=== PATIENT | female | born 1965 | race Caucasian/White ===

== ENCOUNTER 2018-04-19 20:54 | Emergency (ER) | payer OTHER ==
[~2018-04-19] VITALS: Ht 167.6 cm; Wt 117.9 kg
[~2018-04-19 20:54] MED LIST: ASPIRIN81 M2 PO; Z.0.ATENOLOL25 MG PO; Z.0.GABAPENTIN100 MG PO; Z.0.LOSARTAN POTASS2 PO; Z.0.MULTIVITAMINS1 E; [UNRECOGNIZED DRUG - OTHER]
[2018-04-19] MEDS ORDERED: METHYLPREDNISOLONE SOD SUCC 125 MG/2ML VIAL IV STA (21:21)
[2018-04-19] MEDS ORDERED: FAMOTIDINE 20 MG/2 ML VIAL IV STA (21:21)
[2018-04-19] MEDS ORDERED: DIPHENHYDRAMINE HCL INJ 50 MG/ML VIAL IV STA (21:21)
[2018-04-19] MEDS ORDERED: ASPIRIN 81 MG CHEW TAB PO ONE (21:30)
[2018-04-19 21:39] LABS: BASOPHILS % 0.2 % (0.0-1.0); EOSINOPHILS # (AUTO) 0.1 (0.0-0.4); EOSINOPHILS % 0.4 % (0.0-6.0); HEMATOCRIT 50.5 % (34.2-44.1); HEMOGLOBIN 17.2 g/dL (12.0-16.0); LYMPHOCYTES # (AUTO) 3.2 (1.0-3.2); LYMPHOCYTES % 18.7 % (18.0-39.1); MEAN CORPUSCULAR HEMOGLOBIN 30.8 pg (28-32); MEAN CORPUSCULAR HGB CONC 34.1 g/dL (31-35); MEAN CORPUSCULAR VOLUME 90.5 fL (81-99); MONOCYTES # (AUTO) 0.9 (0.2-0.8); MONOCYTES % 5.2 % (4.4-11.3); NEUTROPHILS # (AUTO) 12.8 (2.1-6.9); NEUTROPHILS % 74.9 % (38.7-80.0); PLATELET COUNT 276 x10e3/uL (140-360); RED BLOOD COUNT 5.58 x10e6/uL (3.6-5.1); RED CELL DISTRIBUTION WIDTH 13.7 % (11.7-14.4)
[2018-04-19] MEDS ORDERED: ONDANSETRON HCL INJ 2 MG/ML VIAL ONE ×2 (21:44→21:56)
[2018-04-19 21:55] LABS: ALBUMIN 3.8 g/dL (3.5-5.0); ALBUMIN/GLOBULIN RATIO 1.2 (0.8-2.0); ANION GAP 16.4 mmol/L (8-16); CALCIUM 9.6 mg/dL (8.4-10.2); POTASSIUM 4.4 mmol/L (3.5-5.1)
[2018-04-19] MEDS ORDERED: ONDANSETRON HCL INJ 2 MG/ML VIAL IV STA (22:01)
[2018-04-19 22:02] LABS: CREATINE KINASE MB 1.2 ng/mL (0-5.0)
[2018-04-19] MEDS ORDERED: SODIUM CHLORIDE 0.9% 1000ML 1,000 ML IV STA (23:07)
[2018-04-19] MEDS ORDERED: SODIUM CHLORIDE 0.9% 1000ML 1,000 ML ONE (23:11)
--- NOTE | 2018-04-19 23:15 | Diagnostic Imaging Report ---
CHEST SINGLE (PORTABLE), 04/19/2018 9:21 PM Technique: CHEST SINGLE (PORTABLE) Comparison: None available. Clinical history: Rash, funny feeling in the chest Findings: Limited by body habitus. Prominent cardiac silhouette, likely within normal limits given portable technique. Linear left midlung scarring or atelectasis. No consolidation, pleural effusion or pneumothorax. Incidental ACDF. Impression: No acute abnormality on portable technique. Signed by: Dr Sanaz Baltazar MD on 04/19/2018 11:12 PM
[2018-04-19 23:20] LABS: CLARITY,URINE SL CLOUDY (CLEAR); COLOR,URINE YELLOW (YELLOW)
[2018-04-19 23:21] LABS: BILIRUBIN,URINE 1+ (NEGATIVE); KETONES,URINE TRACE (NEGATIVE); LEUKOCYTE ESTERASE ,URINE TRACE (NEGATIVE); NITRITE,URINE NEGATIVE (NEGATIVE); PROTEIN,URINE DIPSTICK 2+ (NEGATIVE); URINE UROBILINOGEN 0.2 mg/dL (0.2 - 1)
[2018-04-19 23:33] LABS: BACTERIA,URINE MODERATE /HPF; EPITHELIAL CELLS,URINE MODERATE /LPF; RBC,URINE 0-5 /HPF (0-5); WBC,URINE (MAN) 21-50 /HPF (0-5)
[2018-04-19 23:34] LABS: MUCUS,URINE FEW (RARE)
[2018-04-19] MEDS ORDERED: CEFTRIAXONE SOD 1 GM VIAL IV STA (23:36)
[2018-04-20 00:17] VITALS: BP 110/65
== END 2018-04-20 | disposition home or self-care (01) ==
LOC: ER 20:54
DX: R21 Rash and other nonspecific skin eruption (principal); J98.01 Acute bronchospasm; N30.90 Cystitis, unspecified without hematuria; C50.919 Malignant neoplasm of unspecified site of unspecified female breast; E11.9 Type 2 diabetes mellitus without complications; E78.5 Hyperlipidemia, unspecified
CPT/HCPCS: 36415; 71045; 80053; 81001; 82550; 82553; 84484; 85025; 93005; 99284; J0696; J1200; J2405; J2930; J7030